=== PATIENT | male | born 1955 | race Caucasian/White ===

== ENCOUNTER 2018-04-02 16:03 | Inpatient (IN) | payer OTHER ==
[~2018-04-02] VITALS: Ht 167.6 cm; Wt 49.0 kg
[~2018-04-02 16:03] MED LIST: DAPS25TA6; TYL3 PO
[2018-04-02 16:05] VITALS: BP 105/74
--- NOTE | 2018-04-02 16:14 | NUR ---
PT AMBULATED TO ER BED 5.
--- NOTE | 2018-04-02 16:20 | NUR ---
PT. CAME INTO THE ED DUE TO FEVER AND SWOLLEN ANKLES X 3 DAYS. PT. STATES " I HAVE HAD FEVER ON AND OFF FOR 3 DAYS AND ALSO MY ANKLES SWELLED UP , BUT I THINK ITS BECAUSE I HAVE BEEN EATING A LOT OF SALT, I TAKE TYLENOL AND IT CONTROLS MY FEVER". PT. HAS NO PAIN. PT. IS AWAKE AND ALERT AND ABLE TO SPEAK IN FULL SENTENCES. PT. STATES " I HAVE HIV SO IM JUST WORRIED , BUT I TAKE MY MEDICINE REGULARLY". PT HAS 2+ BILAT. ANKLE PITTING EDEMA. LS: CLEAR. PT HAD HERPES IN AUGUST OF THIS YEAR. ER MD NOTIFIED. WILL CONTINUE TO MONITOR. PT. IS AFEBRILE AT THIS TIME. SAFETY PRECAUTIONS INITIATED.
[2018-04-02] MEDS ORDERED: NACL 0.9% 1,000 ML IV ONE (17:21)
[2018-04-02] MEDS ORDERED: KETOROLAC 30 MG/ML VIAL IVP ONE (17:25)
--- NOTE | 2018-04-02 17:30 | NUR ---
PT. RESTING COMFORTABLY IN BED, RR EVENA AND UNLABORED. WILL CONTINUE TO MONITOR. PROVIDED BLANKET.
[2018-04-02 17:56] LABS: BASOPHILS # (AUTO) 0.1 K/uL (0.00-0.22); EOSINOPHILS # (AUTO) 0.1 K/uL (0-0.4); EOSINOPHILS % (AUTO) 1.7 % (0.0-4.0); HEMATOCRIT 29.5 % (36-52); HEMOGLOBIN 9.7 g/dL (12.0-18.0); LYMPHOCYTES # (AUTO) 0.5 K/uL (2.0-11.5); LYMPHOCYTES % (AUTO) 9.4 % (20.5-51.1); MEAN CORPUSCULAR HEMOGLOBIN 29 pg (27-31); MEAN CORPUSCULAR HGB CONC 33 g/dL (33-37); MEAN CORPUSCULAR VOLUME 86.8 fL (80-94); MONOCYTES # (AUTO) 0.3 K/uL (0.8-1.0); MONOCYTES % (AUTO) 5.3 % (1.7-9.3); NEUTROPHILS % (AUTO) 82.6 % (42.2-75.2); PLATELET COUNT (AUTO) 346 K/uL (140-450); RED CELL DISTRIBUTION WIDTH 14.6 % (11.6-13.7); WHITE BLOOD COUNT (AUTO) 4.9 K/uL (4.8-10.8)
[2018-04-02 18:10] LABS: PROTHROMBIN TIME 13.8 secs (10.8-13.4)
[2018-04-02 18:11] LABS: CARBON DIOXIDE 30.1 mmol/L (21-32); CREATININE 0.7 mg/dL (0.7-1.3); POTASSIUM 4.1 mmol/L (3.5-5.1)
[2018-04-02] MEDS ORDERED: SULFAMETH/TRIMETH DS 800/160MG 1 TAB PO ONE (18:20)
[2018-04-02] MEDS ORDERED: AZITHROMYCIN 500 MG in DEXTROSE 5% 250 ML IV ONE (18:20)
[2018-04-02 18:24] LABS: APPEARANCE,URINE CLEAR (CLEAR); BILIRUBIN,URINE NEGATIVE (NEGATIVE); BLOOD, URINE NEGATIVE (NEGATIVE); COLOR,URINE YELLOW (YELLOW); LEUKOCYTE ESTERASE ,URINE NEGATIVE (NEGATIVE); NITRITE, URINE NEGATIVE (NEGATIVE); UGLUCOSE NEGATIVE (NEGATIVE)
[2018-04-02 18:25] LABS: ALBUMIN 1.4 g/dL (3.4-5.0); TOTAL BILIRUBIN 0.3 mg/dL (0.0-1.0)
[2018-04-02] MEDS ORDERED: cefTRIAXone 1,000 MG VIAL ONE (18:28)
[2018-04-02 18:35] LABS: RBC,URINE 0-5 (RARE) /HPF (0-5); WBC,URINE 0-5 (RARE) /HPF (0-5)
--- NOTE | 2018-04-02 18:45 | NUR ---
PT. RSTING COMFORTABLY IN BED, RR EVEN AND UNLABORED. WILL CONTINUE TO MONITOR. BED IN LOWEST POSITION.
--- NOTE | 2018-04-02 19:15 | NUR ---
Pt report given to VIDAL MCCONNELL . Transfer of care at this time.
--- NOTE | 2018-04-02 19:20 | NUR ---
Assumed care of patient, received report from Cruz DRAKE. Pt is pending admission. Pt found lying in ER bed. NAD noted. IV fluids infusing and patient tolerating well. VSS. Pt aware of admission and agrees with the plan. Denies any pain at this time. Pt is waiting for admission orders and bed assignment.
[2018-04-02] MEDS ORDERED: AZITHROMYCIN 500 MG INJ VIAL IV ONE (19:21)
[2018-04-02] MEDS ORDERED: ALBUTEROL 0.083% 2.5 MG/3 ML NEBU INH PRN (20:10)
--- NOTE | 2018-04-02 21:07 | NUR ---
Patient will be admitted to care of Dr. Duncan. Admited to TELE. Will go to room 119A. Belongings list completed. Report to Pasha DRAKE.
[2018-04-02 21:10] VITALS: BP 117/77
--- NOTE | 2018-04-02 21:10 | NUR ---
REPORT RECEIVED FROM ED NURSE THROUGH PHONE. PT IN STABLE CONDITION. AAOX4. BOARD UPDATED AND INTRODUCED SELF TO PT. IV SITE PATENT AND INTACT R HAND 22G SL. SKIN WARM, DRY, AND INTACT WITH NO OPEN WOUNDS. PT IS AMBULATORY. FAROESE/SAUDI ARABIAN SPEAKING. BED LOCKED IN LOW POSITION. CALL ALEXIS WITHIN REACH.
--- NOTE | 2018-04-02 21:45 | NUR ---
LEVAQUIN FIRST DOSE GIVEN. PT TOLERATED WELL. WILL CONTINUE TO MONITOR.
[2018-04-02] MEDS: LEVOFLOXACIN 750 MG/D5W PREMIX 150 ML IV SCH (21:49)
[2018-04-03] VITALS (7 sets, daily range): BP systolic 100–116; BP diastolic 66–72
--- NOTE | 2018-04-03 | NUR ---
PT AWAKE AND ALERT. NEEDED TO VOID. DISCONNECT PT FROM IV. PT AMBULATORY WITH BATHROOM PRIVILEGES. NO S/S OF DISTRESS.
--- NOTE | 2018-04-03 03:00 | NUR ---
PT SLEEPING COMFORTABLY IN BED. CHEST EXPANSION VISIBLE. NO S/S OF DISTRESS. WILL CONTINUE TO MONITOR.
--- NOTE | 2018-04-03 05:30 | NUR ---
PT STATES PAIN 5/10 ON ARM WHERE HERPES SORES ARE. TYL GIVEN. PT ASKED FOR ONLY 1 TABLET OF 325MG. PT TOLERATED WELL.
[2018-04-03] MEDS: ACETAMINOPHEN 325 MG TAB PO PRN ×2 (05:31→16:55)
[2018-04-03 06:48] LABS: BASOPHILS % (AUTO) 0.2 % (0.0-2.0); EOSINOPHILS # (AUTO) 0.1 K/uL (0-0.4); EOSINOPHILS % (AUTO) 1.1 % (0.0-4.0); HEMATOCRIT 30.6 % (36-52); HEMOGLOBIN 10.1 g/dL (12.0-18.0); LYMPHOCYTES # (AUTO) 0.9 K/uL (2.0-11.5); LYMPHOCYTES % (AUTO) 17.6 % (20.5-51.1); MEAN CORPUSCULAR HEMOGLOBIN 29 pg (27-31); MEAN CORPUSCULAR HGB CONC 33 g/dL (33-37); MEAN CORPUSCULAR VOLUME 86.7 fL (80-94); MONOCYTES # (AUTO) 0.4 K/uL (0.8-1.0); MONOCYTES % (AUTO) 7.8 % (1.7-9.3); NEUTROPHILS # (AUTO) 3.8 K/uL (1.8-7.7); NEUTROPHILS % (AUTO) 73.3 % (42.2-75.2); PLATELET COUNT (AUTO) 343 K/uL (140-450); RED BLOOD CELL COUNT(AUTO) 3.53 MIL/uL (4.20-6.10); RED CELL DISTRIBUTION WIDTH 14.6 % (11.6-13.7); WHITE BLOOD COUNT (AUTO) 5.2 K/uL (4.8-10.8)
--- NOTE | 2018-04-03 07:12 | NUR ---
REPORT GIVEN TO AM NURSE AT BEDSIDE. PT IN STABLE CONDITION.
--- NOTE | 2018-04-03 07:14 | NUR ---
RECEIVED BEDSIDE REPORT FROM WEED SCIENCE RESEARCH TECHNICIAN NURSE. PATIENT IS AWAKE, ALERT AND ORIENTEDX4. NO SIGNS OF DISTRESS ON ROOM AIR. HE IS AMBULATORY AND ABLE TO USE THE RESTROOM ON HIS OWN. HERPES ON L ARM. TELE MONITOR IN PLACE. R HAND 22G SALINE LOCK. CLEAN, DRY AND INTACT. NO COMPLAINTS AT THIS TIME. BED IN LOW POSITION. CALL LIGHT WITHIN REACH. WILL CONTINUE TO MONITOR
[2018-04-03 07:24] LABS: PHOSPHORUS 3.2 mg/dL (2.5-4.9)
--- NOTE | 2018-04-03 08:44 | NUR ---
PATIENT HAS BEEN SCREENED AND CATEGORIZED HIGH NUTRITION RISK. PATIENT WILL BE SEEN WITHIN 1-2 DAYS OF ADMISSION. 04/03/18 04/04/[address]
[2018-04-03] MEDS: ENOXAPARIN 40 MG/0.4 ML SYR SUBQ SCH (09:41)
--- NOTE | 2018-04-03 09:41 | NUR ---
ADMINISTERED MEDS. PATIENT TOLERATED WELL. BED IN LOW POSITION. CALL LIGHT WITHIN REACH. WILL CONTINUE TO MONITOR
--- NOTE | 2018-04-03 11:00 | NUR ---
PATIENT IS SITTING IN BED. WATCHING TV. NO SIGNS OF DISTRESS ON ROOM AIR. BED IN LOW POSITION. CALL LIGHT WITHIN REACH. WILL CONTINUE TO MONITOR
--- NOTE | 2018-04-03 12:51 | NUR ---
CM NOTE INITIAL REVIEW FAXED TO [facility] [phone] [place] PH# [phone] NEGIN AGUILAR PH# [phone]
--- NOTE | 2018-04-03 13:00 | NUR ---
PATIENT IN NO SIGNS OF DISTRESS. BED IN LOW POSITION. CALL LIGHT WITHIN REACH. WILL CONTINUE TO MONITOR.
--- NOTE | 2018-04-03 15:18 | NUR ---
04/03/18 RD INITIAL ASSESSMENT COMPLETED PLEASE REFER TO NUTRITION ASSESSMENT UNDER CARE ACTIVITY FOR ESTIMATED NUTRITIONAL NEEDS. 1. CONTINUE REGULAR DIET TOLERATED 2. RECOMMEND ENSURE ENLIVE BID 3. RD TO FOLLOW-UP 3-5 DAYS, MODERATE RISK CARLI ARANDA RD
[2018-04-03] MEDS: ONDANSETRON 4 MG/2 ML VIAL IVP PRN (16:08)
--- NOTE | 2018-04-03 16:08 | NUR ---
ADMINISTERED PRN ZOFRAN. PATIENT IS SO NAUSEOUS. ONCE ADMINISTERED HE SAID HIS NAUSEA WAS GONE. FAMILY AT BEDSIDE. WILL CONTINUE TO MONITOR
--- NOTE | 2018-04-03 16:55 | NUR ---
PATIENT HAS A FEVER OF 102.6 ADMINISTERED TYLENOL. PATIENT TOLERATED WELL. ADMINISTERED IV MEDS. IV IS CLEAN, DRY AND INTACT. REMOVED EXTRA BLANKETS. PATIENT HAS THE CHILLS. WILL REASSESS TEMP
--- NOTE | 2018-04-03 17:55 | NUR ---
FEVER WENT DOWN TO 100.7. PATIENT MORE COMFORTABLE. NO SIGNS OF DISTRESS. WILL CONTINUE TO MONITOR THE PATIENT
--- NOTE | 2018-04-03 19:15 | NUR ---
GAVE BEDSIDE REPORT TO FLEA MARKET SELLER NURSE. ENDORSED PATIENT IN STABLE CONDITION
--- NOTE | 2018-04-03 19:45 | NUR ---
RECEIVED PATIENT AWAKE ON BED, VIETNAMESE SPEAKING. PATIENT IS AMBULATORY, AA0X4. CALL LIGHT WITHIN REACH. BED IN LOW LOCKED POSITION. WILL CONTINUE TO MONITOR.
--- NOTE | 2018-04-03 20:24 | NUR ---
PATIENT UNABLE TO GIVE SPUTUM SAMPLE AT THIS TIME. CUP IS AT BEDSIDE. PT UNDERSTANDS TO GIVE SAMPLE
--- NOTE | 2018-04-03 20:27 | NUR ---
PATIENTS SATS WERE 88%ON ROOM AIR. PLACED PT ON 2LNC
--- NOTE | 2018-04-03 21:00 | NUR ---
SCHEDULE MEDICATION GIVEN. ASSISTING PATIENT TO CHANGE HIS GOWN AND PLACE TO BED. CALL LIGHT WITHIN REACH. NO S/S OF DISTRESS NOTED AT THIS TIME. WILL CONTINUE TO MONITOR.
[2018-04-03] MEDS: LEVOFLOXACIN 750 MG/D5W PREMIX 150 ML IV SCH (21:23)
[2018-04-04] VITALS (7 sets, daily range): BP systolic 84–114; BP diastolic 49–74
--- NOTE | 2018-04-04 | NUR ---
V/S TAKEN AND RECORDED WNL. NO S/S OF DISTRESS NOTED AT THIS TIME. CALL LIGHT WITHIN REACH. BED IN LOW LOCKED POSITION FOR SAFETY. WILL CONTINUE TO MONITOR.
--- NOTE | 2018-04-04 02:25 | NUR ---
CHECKED PATIENT ASLEEP ON BED. NO S/S OF DISTRESS NOTED. CALL LIGHT WITHIN REACH. WILL CONTINUE TO MONITOR.
--- NOTE | 2018-04-04 05:05 | NUR ---
CHECKED PATIENT ASLEEP COMFORTABLE ON BED. NO S/S OF DISTRESS NOTED. CALL LIGHT WITHIN REACH. BED IN LOW LOCKED POSITION. WILL CONTINUE TO MONITOR.
--- NOTE | 2018-04-04 07:25 | NUR ---
ENDORSEMENT GIVEN TO AM SHIFT NURSE AT BEDSIDE FOR CONTINUITY OF CARE. PATIENT IN STABLE CONDITION.
--- NOTE | 2018-04-04 07:25 | NUR ---
RECEIVED PT REPORT FROM JAILOR RN AT BEDSIDE. PT IS AMBULATORY, AAOX4. ON 2L O2 VIA NC. NO S/S OF ACUTE DISTRESS. SPUTUM SPECIMEN SENT TO LAB. PLAN OF CARE DISCUSSED, PT VERBALIZED UNDERSTANDING. CALL LIGHT WITHIN REACH. BED IN LOWEST POSITION. WILL CONTINUE TO MONITOR.
--- NOTE | 2018-04-04 07:54 | NUR ---
AWAKE AND ALERT RESPONSIVE PATIENT ASSESSMENT DONE REVIEWED CXR DATED 04/02/2018 HHN PRN THERAPY GIVEN AT THIS TIME
[2018-04-04] MEDS: FLUCONAZOLE 100 MG TAB PO SCH (08:48)
[2018-04-04] MEDS: FUROSEMIDE 20 MG/2 ML VIAL IVP SCH (08:51)
[2018-04-04] MEDS: ENOXAPARIN 40 MG/0.4 ML SYR SUBQ SCH (08:57)
[2018-04-04 09:03] LABS: BASOPHILS % (AUTO) 0.3 % (0.0-2.0); EOSINOPHILS % (AUTO) 0.3 % (0.0-4.0); HEMATOCRIT 25.7 % (36-52); HEMOGLOBIN 8.7 g/dL (12.0-18.0); LYMPHOCYTES % (AUTO) 16.1 % (20.5-51.1); MEAN CORPUSCULAR HEMOGLOBIN 29 pg (27-31); MEAN CORPUSCULAR HGB CONC 34 g/dL (33-37); MEAN CORPUSCULAR VOLUME 85.9 fL (80-94); MONOCYTES # (AUTO) 0.4 K/uL (0.8-1.0); MONOCYTES % (AUTO) 6.1 % (1.7-9.3); NEUTROPHILS # (AUTO) 4.9 K/uL (1.8-7.7); NEUTROPHILS % (AUTO) 77.2 % (42.2-75.2); PLATELET COUNT (AUTO) 330 K/uL (140-450); RED CELL DISTRIBUTION WIDTH 14.2 % (11.6-13.7); WHITE BLOOD COUNT (AUTO) 6.3 K/uL (4.8-10.8)
[2018-04-04 10:01] LABS: ALBUMIN 1.1 g/dL (3.4-5.0); CREATININE 0.6 mg/dL (0.7-1.3); TOTAL BILIRUBIN 0.2 mg/dL (0.0-1.0)
[2018-04-04 10:04] LABS: PHOSPHORUS 3.8 mg/dL (2.5-4.9)
[2018-04-04 10:13] LABS: CARBON DIOXIDE 28.5 mmol/L (21-32); POTASSIUM 3.5 mmol/L (3.5-5.1)
--- NOTE | 2018-04-04 10:45 | NUR ---
REPORTED TO DR RAMOS, LOW BP 95/54, 500ML NS BOLUS WAS ORDERED.
[2018-04-04] MEDS: NACL 0.9% 1,000 ML IV SCH ×2 (11:06→21:15)
[2018-04-04 11:20] LABS: MAGNESIUM 1.6 mg/dL (1.8-2.4)
[2018-04-04] MEDS ORDERED: NACL 0.9% 500 ML IV SCH (12:20)
[2018-04-04] MEDS: ACETAMINOPHEN 325 MG TAB PO PRN ×2 (14:34→21:17)
--- NOTE | 2018-04-04 14:40 | NUR ---
PT C/O FEVER, TEMP 100.8. UNCOVERED PT, ICE PACK APPLIED TO PT'S BACK OF THE NECK, TYLENOL ADMINISTERED.
--- NOTE | 2018-04-04 18:00 | NUR ---
CALLED DR STYLES, REPORTED PT'S FEVER 100.8, TYLENOL WAS GIVEN, TEMP NOW IS 99.8, MAG 1.6, BLOOD CULTURE AND URINE CULTURE ARE NEGATIVE. 2G MG RIDER WAS ORDERED.
--- NOTE | 2018-04-04 18:20 | NUR ---
PT EATING DINNER, NO S/S OF ACUTE DISTRESS.
[2018-04-04] MEDS ORDERED: MAG SULF 2000 MG/WATER PREMIX 50 ML IV SCH (19:00)
--- NOTE | 2018-04-04 19:15 | NUR ---
ENDORSED PT TO FILLER AND TRIMMER RN. PT IN STABLE CONDITION.
--- NOTE | 2018-04-04 19:30 | NUR ---
PT IS AWAKE,ALERT AND ORIENTED.RESP.UNLABORED W/O2 AT 2L/NC.IVF INFUSING WELL NOW MG RIDER IS INFUSING.TELE IS ON AND SHOWING SR.HAS NO FEVER.CALL LIGHT IN REACH.FAMILY AT BEDSIDE.WILL CONTINUE MONITORING.
--- NOTE | 2018-04-04 21:20 | NUR ---
HAD FEVER 100.8.TYLENOL PO GIVEN.WILL MONITOR TEMP.LATER.
[2018-04-04] MEDS: LEVOFLOXACIN 750 MG/D5W PREMIX 150 ML IV SCH (21:52)
--- NOTE | 2018-04-04 22:15 | NUR ---
CHECKED TEMP=99.1
[2018-04-05] VITALS: BP 98/57
--- NOTE | 2018-04-05 00:15 | NUR ---
VS STABLE.NO FEVER.HR IS SR.NO RESP.DISTRESS NOTED.
[2018-04-05 04:00] VITALS: BP 99/63
--- NOTE | 2018-04-05 04:10 | NUR ---
WATCHING TV.HR IS SR.VS STABLE W/ NO FEVER.IVF IS IN PROGRESS.
[2018-04-05] MEDS: ONDANSETRON 4 MG/2 ML VIAL IVP PRN (05:39)
--- NOTE | 2018-04-05 06:28 | NUR ---
HAD C/O NAUSEA EARLIER ZOFRAN IVP GIVEN .NO C/O NAUSEA NOW.
[2018-04-05 06:41] LABS: BASOPHILS % (AUTO) 0.4 % (0.0-2.0); EOSINOPHILS # (AUTO) 0.1 K/uL (0-0.4); EOSINOPHILS % (AUTO) 1.1 % (0.0-4.0); HEMATOCRIT 33.2 % (36-52); LYMPHOCYTES # (AUTO) 1.5 K/uL (2.0-11.5); MEAN CORPUSCULAR HEMOGLOBIN 29 pg (27-31); MEAN CORPUSCULAR HGB CONC 33 g/dL (33-37); MEAN CORPUSCULAR VOLUME 86.5 fL (80-94); MONOCYTES # (AUTO) 0.3 K/uL (0.8-1.0); MONOCYTES % (AUTO) 2.6 % (1.7-9.3); NEUTROPHILS % (AUTO) 80.9 % (42.2-75.2); PLATELET COUNT (AUTO) 392 K/uL (140-450); RED BLOOD CELL COUNT(AUTO) 3.84 MIL/uL (4.20-6.10); RED CELL DISTRIBUTION WIDTH 14.4 % (11.6-13.7); WHITE BLOOD COUNT (AUTO) 9.9 K/uL (4.8-10.8)
--- NOTE | 2018-04-05 07:05 | NUR ---
RECEIVED PT REPORT FROM ENGRAVER BLOCK RN AT BEDSIDE. PT IS AMBULATORY, AAOX4. ON 3L O2 VIA NC. NO S/S OF ACUTE DISTRESS. IV NOTED TO THE RIGHT HAND, 22G, ASYMPTOMATIC, INFUSING WELL. PLAN OF CARE DISCUSSED, PT VERBALIZED UNDERSTANDING. CALL LIGHT WITHIN REACH. BED IN LOWEST POSITION. WILL CONTINUE TO MONITOR.
--- NOTE | 2018-04-05 07:12 | NUR ---
ENDORSED TO AM RN.NO ANY DISTRESS NOTED NOW.
[2018-04-05 07:39] LABS: ALBUMIN 1.1 g/dL (3.4-5.0); ANION GAP 7.6 (8-16); CARBON DIOXIDE 29.2 mmol/L (21-32); CREATININE 0.6 mg/dL (0.7-1.3); POTASSIUM 3.8 mmol/L (3.5-5.1); THYROID STIMULATING HORMONE 0.68 uIU/mL (0.34-3.74); TOTAL BILIRUBIN 0.3 mg/dL (0.0-1.0)
[2018-04-05 08:00] VITALS: BP 100/66
[2018-04-05] MEDS ORDERED: FERROUS SULFATE 325 MG TABEC PO SCH (08:00)
[2018-04-05] MEDS: FLUCONAZOLE 100 MG TAB PO SCH (08:36)
--- NOTE | 2018-04-05 08:36 | NUR ---
TYLENOL [id number] DID NOT SCAN.
[2018-04-05] MEDS: FUROSEMIDE 20 MG/2 ML VIAL IVP SCH (08:38)
[2018-04-05] MEDS: ACETAMINOPHEN 325 MG TAB PO PRN (08:41)
[2018-04-05] MEDS: ENOXAPARIN 40 MG/0.4 ML SYR SUBQ SCH (08:47)
[2018-04-05] MEDS ORDERED: SODIUM CHLORIDE 1 GM TAB PO SCH (09:00)
[2018-04-05] MEDS ORDERED: LEVO750T2 PO (10:19)
[2018-04-05 12:00] VITALS: BP 95/56
--- NOTE | 2018-04-05 12:30 | NUR ---
PT DISCHARGED TO HOME PER MD ORDER. DISCHARGE INSTRUCTION AND MED TEACHING GIVEN. PT VERBALIZED UNDERSTANDING. PT IS AWARE THAT HE NEEDS TO MAKE APPT WITH HIS PCP DR YEH AND IPMG DR RAMOS. PT DENIES ANY PAIN AT THIS TIME. VITAL ARE STABLE. PT LEFT WITH ALL HIS BELONGINGS AND IN STABLE CONDITION.
--- NOTE | 2018-04-05 14:03 | NUR ---
IV DC'D, TIP INTACT, PRESSURE APPLIED. WHEELED PT TO LOBBY, PT HAS BEEN PICKED UP BY HIS FRIEND.
--- NOTE | 2018-04-07 15:29 | NUR ---
FAXED DISCHARGE SUMMARY TO [facility] [phone]
== END 2018-04-05 14:10 | disposition home or self-care (01) | DRG 892 ==
LOC: MED 16:03 → MTU 20:29
PROVIDERS: ADMIT Internal Medicine; ATTEND Internal Medicine
DX: B20 Human immunodeficiency virus [HIV] disease (principal); A41.9 Sepsis, unspecified organism; E43 Unspecified severe protein-calorie malnutrition; R64 Cachexia; J18.9 Pneumonia, unspecified organism; E87.1 Hypo-osmolality and hyponatremia; D64.9 Anemia, unspecified; Z68.1 Body mass index [BMI] 19.9 or less, adult; Z79.899 Other long term (current) drug therapy; Z87.891 Personal history of nicotine dependence
CPT/HCPCS: 36415; 36600; 71045; 80053; 81001; 82803; 83605; 83690; 83735; 83880; 84100; 84443; 84484; 85025; 85610; 86360; 86803; 87040; 87081; 87086; 87205; 93005; 94640; 96361; 96365; 99285; C1758; J0456; J0696; J1650; J1885; J1940; J1956; J2405; J3475; J7030; J7060; J7613

== ENCOUNTER 2018-04-06 23:44 | Inpatient (IN) | payer OTHER ==
[~2018-04-06] VITALS: Ht 170.2 cm; Wt 48.5 kg
[~2018-04-06 23:44] MED LIST changes: +LEVO750T2 PO
[2018-04-06 23:50] VITALS: BP 104/68
--- NOTE | 2018-04-06 23:54 | NUR ---
TO BED # 3 AMBULATORY, REPORT GIVEN TO KIRSTY
[2018-04-07] MEDS ORDERED: NACL 0.9% 1,000 ML IV ONE (00:05)
--- NOTE | 2018-04-07 00:10 | NUR ---
X-Ray at bedside.
--- NOTE | 2018-04-07 00:15 | NUR ---
Dr. Byers evaluating patient at bedside.
[2018-04-07 00:39] LABS: BASOPHILS # (AUTO) 0.1 K/uL (0.00-0.22); BASOPHILS % (AUTO) 0.9 % (0.0-2.0); EOSINOPHILS # (AUTO) 0.1 K/uL (0-0.4); EOSINOPHILS % (AUTO) 0.6 % (0.0-4.0); HEMATOCRIT 36.6 % (36-52); HEMOGLOBIN 12.3 g/dL (12.0-18.0); LYMPHOCYTES # (AUTO) 1.7 K/uL (2.0-11.5); LYMPHOCYTES % (AUTO) 18.9 % (20.5-51.1); MEAN CORPUSCULAR HEMOGLOBIN 29 pg (27-31); MEAN CORPUSCULAR HGB CONC 34 g/dL (33-37); MONOCYTES # (AUTO) 0.3 K/uL (0.8-1.0); MONOCYTES % (AUTO) 3.1 % (1.7-9.3); NEUTROPHILS # (AUTO) 6.9 K/uL (1.8-7.7); NEUTROPHILS % (AUTO) 76.5 % (42.2-75.2); RED BLOOD CELL COUNT(AUTO) 4.26 MIL/uL (4.20-6.10); RED CELL DISTRIBUTION WIDTH 14.6 % (11.6-13.7); WHITE BLOOD COUNT (AUTO) 9.1 K/uL (4.8-10.8)
[2018-04-07 00:53] LABS: ANION GAP 9.5 (8-16); CARBON DIOXIDE 27.9 mmol/L (21-32); CREATININE 0.8 mg/dL (0.7-1.3); PLATELET COUNT (AUTO) 541 K/uL (140-450); POTASSIUM 4.4 mmol/L (3.5-5.1)
[2018-04-07 00:56] LABS: PROTHROMBIN TIME 11.7 secs (10.8-13.4)
[2018-04-07 00:59] LABS: ALBUMIN 1.5 g/dL (3.4-5.0); TOTAL BILIRUBIN 0.7 mg/dL (0.0-1.0)
[2018-04-07] MEDS ORDERED: NACL 0.9% 1,500 ML IV ONE (01:20)
[2018-04-07] MEDS ORDERED: PIPERACILLIN/TAZOBACTAM 3.375 GM in DEXTROSE 5% 50 ML IV ONE (01:20)
[2018-04-07] MEDS ORDERED: SULFAMETH/TRIMETH DS 800/160MG 1 TAB PO ONE (01:20)
[2018-04-07] MEDS ORDERED: PIPERACILLIN/TAZOBACTAM 3.375 GM VIAL IV ONE ×2 (01:31→06:12)
--- NOTE | 2018-04-07 01:41 | NUR ---
PT MOVED TO ER BED 2
[2018-04-07] MEDS ORDERED: MORPHINE SULFATE 2 MG/ML SYR IVP PRN (02:00)
[2018-04-07] MEDS ORDERED: BACTRIM IV PER PHARMACY MC PRN (02:00)
[2018-04-07] MEDS ORDERED: LORazepam 2 MG/ML VIAL IVP PRN (02:00)
[2018-04-07] MEDS ORDERED: HYDROcodone/APAP 5/325 MG 1 TAB TAB PO PRN (02:00)
[2018-04-07] MEDS ORDERED: ONDANSETRON 4 MG/2 ML VIAL IVP PRN (02:00)
[2018-04-07] MEDS ORDERED: ACETAMINOPHEN 325 MG TAB PO PRN (02:00)
--- NOTE | 2018-04-07 02:38 | NUR ---
PT ARRIVED AT UNIT VIA GURNEY FROM ED, PT AMBULATED TO BED, NO DISTRESS NOTED, TOLERATED WELL, REPORT RECEIVED FROM ED NURSE MATY LOFTON TO R FA 20G PATENT, INTACT, SL, PT ON 2LPM O2 VIA NC, NO SOB, ORIENT PT TO BED, ROOM, CALL LIGHT AND PHONE, PT STATED UNDERSTANDING, MRSA SWAB TAKEN, PT STATED HAVING NO PAIN AT THIS MOMENT, LEFT RESTING, NO DISTRESS NOTED, CALL LIGHT WITHIN REACH, WILL CONTINUE TO MONITOR.
--- NOTE | 2018-04-07 02:40 | NUR ---
Patient will be admitted to [facility]. Admitted to TELE. Will go to room 112B. Belongings list completed. Report to VIDAL BURNS.
[2018-04-07 03:00] VITALS: BP 97/58
--- NOTE | 2018-04-07 03:00 | NUR ---
PT PO2 IS 70%, PT SEEMED TO BE IN NO DISTRESS, NO SOB, NOTIFIED RT, AND INCREASE O2 TO 3LPM, PT STILL SAT ON 80%, RT COSTA CAME AND PUT PT ON 5LPM VIA NC WITH HUMIDIFIER, PT NOW SAT AT 91%, NO DISTRESS NOTED, CALL LIGHT WITHIN REACH, WILL CONTINUE TO MONITOR.
--- NOTE | 2018-04-07 03:30 | NUR ---
MOVED PT TO ROOM 116, PT TOLERATED WELL, NO DISTRESS NOTED, REORIENT PT TO ROOM, CALL LIGHT WITHIN REACH, WILL CONTINUE TO MONITOR.
[2018-04-07 04:00] VITALS: BP 95/59
[2018-04-07] MEDS: LEVOFLOXACIN 750 MG/D5W PREMIX 150 ML IV SCH (04:19)
--- NOTE | 2018-04-07 04:19 | NUR ---
DUE MEDICATION ADMINISTERED, PT TOLERATED WELL, NO DISTRESS NOTED, CALL LIGHT WITHIN REACH, WILL CONTINUE TO MONITOR.
[2018-04-07 06:10] LABS: BILIRUBIN,URINE 1+ (NEGATIVE); BLOOD, URINE NEGATIVE (NEGATIVE); COLOR,URINE YELLOW (YELLOW); LEUKOCYTE ESTERASE ,URINE NEGATIVE (NEGATIVE); NITRITE, URINE NEGATIVE (NEGATIVE); PH,URINE 5.5 (5.0-9.0); UGLUCOSE NEGATIVE (NEGATIVE)
--- NOTE | 2018-04-07 06:19 | NUR ---
DUE MEDICATION GIVEN, PT TOLERATED WELL, NO DISTRESS NOTED, CALL LIGHT WITHIN REACH, WILL CONTINUE TO MONITOR.
[2018-04-07 06:25] LABS: APPEARANCE,URINE SLIGHTLY HAZY (CLEAR); RBC,URINE NONE SEEN /HPF (0-5); WBC,URINE 0-5 (RARE) /HPF (0-5)
[2018-04-07] MEDS ORDERED: PIPERACILLIN/TAZOBACTAM 3.375 GM in DEXTROSE 5% 50 ML IV SCH (07:00)
[2018-04-07] MEDS: ALBUTEROL 0.083% 2.5 MG/3 ML NEBU INH SCH ×3 (07:15→19:00)
--- NOTE | 2018-04-07 07:18 | NUR ---
ENDORSED PT TO DAY SHIFT NURSE GAGANDEEP DRAKE, PT IN STABLE CONDITION, NO DISTRESS NOTED, CALL LIGHT WITHIN REACH.
--- NOTE | 2018-04-07 07:23 | NUR ---
PT IS AWARE THAT WE NEED TO COLLECT SPUTUM SAMPLE. PT SAID HE DOES NOT HAVE ANY FLEM OR COUGH. SPUTUM CUP AT BEDSIDE. HHN TX GIVEN WITH NO ADVERSE REACTION. PT ON 6 L NC WITH BUBBLE HUMIDIFIER. WILL CONTINUE TO MONITOR.
--- NOTE | 2018-04-07 07:24 | NUR ---
RECEIVED REPORT FROM SURG RN NURSE GRANT AT BEDSIDE FOR CONTINUITY OF CARE. PT IS AWAKE AND ORIENTED X4. INTRODUCED SELF AND UPDATED BOARD. PT DENIES PAIN. LUNG SOUNDS CLEAR. O2 SAT 91% ON O2 NC 5L/MIN. NO SOB. PT WITH NON-PRODUCTIVE COUGH. NO SIGNS OF DISTRESS. ASKED IF PT NEEDED ANYTHING. PT STATED "NO." CALL LIGHT WITHIN REACH. BED IN LOW POSITION, WHEELS LOCKED. WILL CONTINUE TO MONITOR.
[2018-04-07 08:00] VITALS: BP 92/59
--- NOTE | 2018-04-07 08:53 | NUR ---
PATIENT HAS BEEN SCREENED AND CATEGORIZED HIGH NUTRITION RISK. PATIENT WILL BE SEEN WITHIN 1-2 DAYS OF ADMISSION. 04/07/18 04/08/[address]
--- NOTE | 2018-04-07 09:22 | NUR ---
ADMINISTERED SCHEDULED MEDS. PT TOLERATED WELL. PT POINTED TO MOUTH AND STATED HIS MOUTH WAS WATERY. PT WITH NON-PRODUCTIVE COUGH AND UNABLE TO COLLECT SPUTUM AT THIS TIME. BED IN LOW POSITION, WHEELS LOCKED. WILL CONTINUE TO MONITOR.
[2018-04-07] MEDS: ENOXAPARIN 40 MG/0.4 ML SYR SUBQ SCH (09:27)
[2018-04-07 12:00] VITALS: BP 112/75
--- NOTE | 2018-04-07 12:04 | NUR ---
FAXED INITIAL REVIEW TO [facility] [phone] PHONE SIOBHAN [phone]
--- NOTE | 2018-04-07 12:10 | NUR ---
PT SITTING UP IN BED EATING LUNCH TRAY. NO SIGNS OF DISTRESS. CALL LIGHT WITHIN REACH. WILL CONTINUE TO MONITOR.
--- NOTE | 2018-04-07 14:00 | NUR ---
04/07/18 RD INITIAL ASSESSMENT COMPLETED PLEASE REFER TO NUTRITION ASSESSMENT UNDER CARE ACTIVITY FOR ESTIMATED NUTRITIONAL NEEDS. 1. RECOMMEND CARDIAC DIET TOLERATED 2. RECOMMEND HEALTH SHAKE TID 3. RD TO FOLLOW-UP 2-3 DAYS, HIGH RISK CARLI ARANDA RD
[2018-04-07] MEDS: NACL 0.9% 1,000 ML IV SCH ×2 (14:26→16:45)
--- NOTE | 2018-04-07 14:45 | NUR ---
CHECKED ON PT IN ROOM. FAMILY AT BEDSIDE. NO SIGNS OF DISTRESS. BED ALARM ON, CALL LIGHT WITHIN REACH. WILL CONTINUE TO MONITOR.
[2018-04-07] MEDS: PIPER/TAZO 3.375GM/D5W PREMIX 50 ML IV SCH ×2 (15:58→21:03)
[2018-04-07 16:00] VITALS: BP 105/70
--- NOTE | 2018-04-07 19:15 | NUR ---
CHANGED NC WITH OXYMIZER 8L
--- NOTE | 2018-04-07 19:25 | NUR ---
ENDORSED PT TO CATH LAB TECHNOLOGIST NURSE GRANT AT BEDSIDE FOR CONTINUITY OF CARE. PT IN STABLE CONDITION.
--- NOTE | 2018-04-07 19:26 | NUR ---
RECEIVED BEDSIDE REPORT FROM DAY SHIFT NURSE GAGANDEEP RN, PT STABLE, NO DISTRESS NOTED, IV TO R FA 20G PATENT, INTACT, INFUSING NS @80ML/HR, INFUSING WELL, PT ON 8LPM O2 VIA OXYMIZER, NO SOB NOTED, INITIAL ASSESSMENT DONE, ALL SAFETY PRECAUTION MET, WILL CONTINUE TO MONITOR.
[2018-04-07 20:00] VITALS: BP 94/57
[2018-04-07] MEDS: SULFAMETH/TRIMETH DS 800/160MG 1 TAB PO SCH (21:03)
--- NOTE | 2018-04-07 21:03 | NUR ---
DUE MEDICATION ADMINISTERED, PT TOLERATED WELL, NO DISTRESS NOTED, CALL LIGHT WITHIN REACH, WILL CONTINUE TO MONITOR.
[2018-04-08] VITALS: BP 90/59
--- NOTE | 2018-04-08 01:01 | NUR ---
PT STATED FEELING PAIN, 4/10 ON THE ABD, PT STATED PAIN IS INTERMITTENT AND KEEPING HIM AWAKE, PAIN MEDICATION GIVEN, PT TOLERATED WELL, NO DISTRESS NOTED, CALL LIGHT WITHIN REACH, WILL CONTINUE TO MONITOR.
[2018-04-08] MEDS: ALBUTEROL 0.083% 2.5 MG/3 ML NEBU INH SCH ×2 (01:02→06:34)
[2018-04-08] MEDS: NACL 0.9% 1,000 ML IV SCH (02:56)
[2018-04-08] MEDS: LEVOFLOXACIN 750 MG/D5W PREMIX 150 ML IV SCH (03:11)
[2018-04-08 04:00] VITALS: BP 92/52
--- NOTE | 2018-04-08 04:19 | NUR ---
CALLED RT REGARDING PT PO2 86%, RT CAME AND EVALUATED PT, AND WILL GIVE PT BREATHING TREATMENT, PT RESTING, NO DISTRESS NOTED, CALL LIGHT WITHIN REACH, WILL CONTINUE TO MONITOR.
--- NOTE | 2018-04-08 04:25 | NUR ---
Called to pt bedside, pt desaturated to 87%, titrated O2 to 10 LPM, O2 sat back up to 91%, pt resting comfortably, no resp distress or SOB noted at this time, Sepideh DRAKE aware, will cont to monitor.
[2018-04-08] MEDS: PIPER/TAZO 3.375GM/D5W PREMIX 50 ML IV SCH ×2 (05:09→13:00)
[2018-04-08 06:16] LABS: BASOPHILS % (AUTO) 0.3 % (0.0-2.0); EOSINOPHILS % (AUTO) 0.7 % (0.0-4.0); HEMATOCRIT 28.9 % (36-52); HEMOGLOBIN 9.6 g/dL (12.0-18.0); LYMPHOCYTES # (AUTO) 0.5 K/uL (2.0-11.5); LYMPHOCYTES % (AUTO) 7.4 % (20.5-51.1); MEAN CORPUSCULAR HEMOGLOBIN 29 pg (27-31); MEAN CORPUSCULAR HGB CONC 33 g/dL (33-37); MEAN CORPUSCULAR VOLUME 85.6 fL (80-94); MONOCYTES # (AUTO) 0.2 K/uL (0.8-1.0); MONOCYTES % (AUTO) 3.4 % (1.7-9.3); NEUTROPHILS # (AUTO) 5.5 K/uL (1.8-7.7); NEUTROPHILS % (AUTO) 88.2 % (42.2-75.2); PLATELET COUNT (AUTO) 350 K/uL (140-450); RED BLOOD CELL COUNT(AUTO) 3.38 MIL/uL (4.20-6.10); RED CELL DISTRIBUTION WIDTH 14.4 % (11.6-13.7); WHITE BLOOD COUNT (AUTO) 6.2 K/uL (4.8-10.8)
[2018-04-08 06:38] LABS: ALBUMIN 0.8 g/dL (3.4-5.0); ANION GAP 8.6 (8-16); CARBON DIOXIDE 26.9 mmol/L (21-32); CREATININE 0.9 mg/dL (0.7-1.3); MAGNESIUM 1.6 mg/dL (1.8-2.4); POTASSIUM 3.5 mmol/L (3.5-5.1); TOTAL BILIRUBIN 0.6 mg/dL (0.0-1.0)
--- NOTE | 2018-04-08 07:24 | NUR ---
ENDORSED PT TO DAY SHIFT NURSE GAGANDEEP DRAKE, PT STABLE, NO DISTRESS NOTED, CALL LIGHT WITHIN REACH.
--- NOTE | 2018-04-08 07:37 | NUR ---
PT REFUSED ABG OXYGEN PT VERY UNCOOPERATIVE SPO2 .80 RN AWARE ALSO STSTED HE WISHES TO REFUSE HHN RX WELL
--- NOTE | 2018-04-08 07:47 | NUR ---
PAGED DR. BENSON AND REPORTED PT REFUSING OXYGEN AND ABGS. PT O2 SAT WAS ALSO 80%. RECEIVED ORDER FOR SOLU-MEDROL IV
--- NOTE | 2018-04-08 07:57 | NUR ---
KELLEY CALLED BY VIDAL BAUER
[2018-04-08 08:00] VITALS: BP 106/69
--- NOTE | 2018-04-08 08:00 | NUR ---
CALLED PT'S FRIEND MARILIA HAM AND REPORTED THAT PT WAS REFUSING TX AND OXYGEN. SAID THAT PT STATED "HE WANTED TO GO AND IT IS HIS TIME NOW." SAID HE WILL COME TO SEE PT TODAY
--- NOTE | 2018-04-08 08:15 | NUR ---
CALLED DR. BENSON AND TOLD HIM THAT PT STILL REFUSING O2 AND O2 SAT 80%, PT WAS ALSO STATING HE IS STATING HE IS READY TO . SAID WILL GET HOSPICE ON BOARD FOR PT.
[2018-04-08] MEDS ORDERED: methylPREDNISolone SS 125 MG/2 ML VIAL IVP SCH ×2 (08:20→13:00)
--- NOTE | 2018-04-08 08:25 | NUR ---
PT REFUSING TELE MONITOR. SPOKE WITH PT AND HE STATED HE DOES NOT WANT ANY TX. PT KEPT SAYING HE WANTS TO . ASKED IF PT HAD ANY PAIN. HE STATED NO. OFFERED BREAKFAST TRAY. PT STILL REFUSING TO EAT. SITTING IN BED ON CELL PHONE. WILL CONTINUE TO MONITOR.
--- NOTE | 2018-04-08 08:27 | NUR ---
CALLED PT'S SISTER JUAN AND INFORMED HER THAT PT WAS REFUSING ALL CARE, O2 AND TELE MONITOR. TOLD HER IF WE DON'T GIVE HIM TX OR O2 PT WILL CONTINUE TO DECLINE. SHE SPOKE WITH PT ON PHONE AND PT SAID HE IS READY TO GO, IT IS HIS TIME AND POINTED TOWARDS THE CEILING. JUAN SAID SHE WILL COME TO SEE PT.
--- NOTE | 2018-04-08 08:52 | NUR ---
USED CERTIFIED MORTICIAN CECILIO [phone] WHO TRANSLATED FOR PT IN [facility]. ASKED PT WHY HE IS REFUSING CARE. PT STATED HE DOES NOT WANT ANYTHING DONE. ASKED IF HE STOPPED BREATHING AND IF HIS HEART STOPPED DOES HE WANT US TO TRY AND HELP HIM. PT STATED NO I DON'T WANT. PT STARTED TO TURN BLUE ON FINGER TIPS AND TOLD PT THAT HE NEEDS OXYGEN. PT STATED NO HE DOES NOT WANT. TRIED TO PUT PULSE OX AND OXYGEN ON PT. PT MOVED HAND AWAY AND REFUSED TO HAVE ON. REPORTED TO DR. BENSON. ORDERED COMFORT MEASURES.
[2018-04-08] MEDS: ENOXAPARIN 40 MG/0.4 ML SYR SUBQ SCH (09:00)
[2018-04-08] MEDS: SULFAMETH/TRIMETH DS 800/160MG 1 TAB PO SCH (09:00)
[2018-04-08] MEDS ORDERED: MORPHINE SULFATE 2 MG/ML SYR IVP PRN (09:05)
[2018-04-08] MEDS ORDERED: LORazepam 2 MG/ML VIAL IVP PRN (09:05)
--- NOTE | 2018-04-08 09:14 | NUR ---
TRIED TO ADMINISTER ATIVAN IVP. PT REFUSED MED. NON ADMIN ATIVAN AND WASTED MED. PT KEPT SAYING "I DON'T WANT IT." LAUNCH STEWARD WAS IN ROOM WITH PT AND PT TOOK HIS WALLET AND THREW IT TOWARDS HER. PT ON PHONE NOW TALKING WITH FRIEND. WILL CONTINUE TO MONITOR.
--- NOTE | 2018-04-08 09:29 | NUR ---
PT REFUSED SCHEDULED MEDS. INFORMED PT OF RISKS AND BENEFITS OF MEDS. PT KEPT SAYING " I UNDERSTAND" BUT STILL REFUSED MEDS. NON ADMIN MEDS. PT WAS ALSO SAYING HIS COLOR DOES NOT LOOK GOOD. NOTED FINGER TIPS WERE GETTING BLUE. OFFERED TO GIVE PT OXYGEN AND TAKE PULSE OX. PT STILL REFUSED. HE SAID "I UNDERSTAND ALREADY" AND STATED "NO". WILL CONTINUE TO MONITOR.
--- NOTE | 2018-04-08 09:45 | NUR ---
PAGED DR. BENSON. NO CALL BACK RETURNED
--- NOTE | 2018-04-08 10:08 | NUR ---
RAPID RESPONSE CALLED. PT WAS IN AGONAL BREATHING. TRIED PUTTING OXYGEN ON AND PULSE OX ON PT. PT PUSHED O2 MASK AND PULSE OX AWAY AND REFUSED. O2 SAT WAS AT 89%. RR 28. PT STILL REFUSING CARE. PT WAS THEN YELLING "OWW" THAT HIS HEAD HURTS. OFFERED PAIN MEDICATION. PT STATED "NO" AND "OUT" FOR NURSE TO GET OUT. NO INJURIES. PAGED FOR DR. BENSON.
--- NOTE | 2018-04-08 10:25 | NUR ---
Top Lift Scourer Note: I met with patient and patient's sister Vivienne Rouse at bedside. Vivienne speaks Togolese, not fluent in [place]. Per Vivienne, she would like patient to return home upon discharge. She was slightly tearful and reported she wanted to take patient home right away. I explained to her that Director of Telemetry/Med Surg Yumi had informed me that patient isn't medically stable to return home at this time. She expressed that she is nervous about patient possibly passing away and not knowing what to do. I normalized her feelings. She reported she did not want patient to be in pain. We discussed DNR vs Full Code and also hospice services. I provided her with education on hospice services and informed her hospice services can be provided at home. She stated she would like patient to pass away naturally, wants him to be DNR. She agreed to hospice evaluation. I explained to her [facility] representative personal service/s will come to the hospital as soon as possible. She thanked me for my assistance and stated she did not have any questions or concerns at this time. Addendum: 04/08/18 at 1245 by Viv Dwyer I faxed patient's medical information and demographics to [facility], phone number , fax .
--- NOTE | 2018-04-08 10:33 | NUR ---
[address] BENSON REGARDING PT REFUSING ANY FURTHER TREATMENT AND PATIENT MAY BENEFIT FROM HOSPICE EVALUATION. 1029 DR BENSON RESPONDED BACK AND INDICATED THAT HE HAS CONTACTED [facility] FOR EVALUATION. [facility] DIRECTOR INFORMED.
--- NOTE | 2018-04-08 11:04 | NUR ---
1055 CALLED [facility] AND SPOKE WITH SILVESTRE. STATED THAT SHE WILL BE AT THE FACILITY IN APPROX 30 MINUTES TO MEET WITH THE PATIENT AND FAMILY.
--- NOTE | 2018-04-08 11:15 | NUR ---
USED CATTLE BROKER BON [id number] AND TRANSLATED FOR PT'S SISTER JUAN BUENO WHO AGREES AND SIGNED FOR DNR.
--- NOTE | 2018-04-08 11:40 | NUR ---
CONCURRENT REVIEW FAXED TO [facility] [phone]
--- NOTE | 2018-04-08 12:45 | NUR ---
Wine Manager Note: Per Cathleen from [facility] / , patient's sister Vivienne signed hospice consents and they will coordinate patient's transfer to home.
--- NOTE | 2018-04-08 13:45 | NUR ---
PT WILLING TO DON 100 NRB MASK AT 15 LPM FOR NOW WILL CONTINUE TO MONITOR PT
[2018-04-08] MEDS ORDERED: ACET-1182 PO (13:50)
[2018-04-08] MEDS ORDERED: LORA-476 PO (13:50)
--- NOTE | 2018-04-08 16:45 | NUR ---
PT D/C TO GO HOME ON HOSPICE WITH [facility]. GAVE D/C FORMS, INSTRUCTIONS, LABS, AND RX TO PT. PT VERBALIZED UNDERSTANDING AND SIGNED FORMS. REMOVED IV CATHETER FROM R FA 20G. IV CATHETER TIP INTACT. APPLIED DRESSING AND PRESSURE TO SITE. NO BLEEDING NOTED. REMOVED ID BAND. PT CHANGED IN OWN CLOTHES AND LEFT WITH ALL PERSONAL BELONGINGS. GAVE REPORT TO TRANSPORTER. PT LEFT VIA GURNEY ON O2 NON-REBREATHER MASK. PT LEFT IN STABLE CONDITION.
[2018-04-08 18:08] LABS: LACTATE DEHYDROGENASE 496 IU/L (121-224)
[2018-04-09 06:16] LABS: LD1 FRACTION 11 % (17-32); LD2 FRACTION 37 % (25-40); LD3 FRACTION 31 % (17-27); LD4 FRACTION 11 % (5-13); LD5 FRACTION 10 % (4-20)
== END 2018-04-08 16:45 | disposition hospice, home (50) | DRG 890 ==
LOC: MED 23:44 → MTU 04-07 02:01
PROVIDERS: ADMIT Hospitalist; ATTEND Hospitalist
DX: B20 Human immunodeficiency virus [HIV] disease (principal); J96.00 Acute respiratory failure, unspecified whether with hypoxia or hypercapnia; B59 Pneumocystosis; E43 Unspecified severe protein-calorie malnutrition; E87.1 Hypo-osmolality and hyponatremia; B19.20 Unspecified viral hepatitis C without hepatic coma; R74.0 Nonspecific elevation of levels of transaminase and lactic acid dehydrogenase [LDH]; Z79.899 Other long term (current) drug therapy; Z68.1 Body mass index [BMI] 19.9 or less, adult
CPT/HCPCS: 36415; 71045; 80053; 81001; 83605; 83625; 83735; 83880; 84484; 85025; 85610; 85730; 87040; 87081; 87086; 93005; 94640; 96361; 96365; 99285; J1650; J1956; J2060; J2543; J7030; J7060; J7613; Q0092